=== PATIENT | female | born 1965 | race Asian ===

== ENCOUNTER 2022-01-11 15:53 | Emergency (ER) | payer OTHER ==
[2022-01-11 17:46] LABS: Basophils % (Auto) 0.6 % (0.0-1.8); Eosinophils # (Auto) 0.1 K/mm3 (0.0-0.4); Eosinophils % (Auto) 1.2 % (0.0-4.3); Hematocrit 38.3 % (30.3-42.9); Hemoglobin 13.2 gm/dl (10.1-14.3); Lymphocytes # (Auto) 1.9 K/mm3 (1.2-5.4); Lymphocytes % (Auto) 32.1 % (13.4-35.0); Mean Corpuscular HGB Conc 35 % (30-34); Mean Corpuscular Volume 91 fl (79-97); Monocytes # (Auto) 0.4 K/mm3 (0.0-0.8); Monocytes % (Auto) 7.4 % (0.0-7.3); Platelet Count 235 K/mm3 (140-440); Red Blood Count 4.19 M/mm3 (3.65-5.03); Red Cell Distribution Width 13.6 % (13.2-15.2)
[2022-01-11 17:54] LABS: Bacteria,Urine 2+ /HPF (Negative); Bilirubin,Urine NEG (Negative); Blood,Urine SM (Negative); Color,Urine Yellow (Yellow); Mucus,Urine 2+ /HPF; Protein,Urine <15 mg/dL mg/dL (Negative); Urobilinogen,Urine < 2.0 mg/dL (<2.0)
[2022-01-11 18:09] LABS: Alanine Aminotransferase 11 units/L (7-56); Albumin 4.6 g/dL (3.9-5); BUN/Creatinine Ratio 15; Blood Urea Nitrogen 12 mg/dL (7-17); Calcium 9.7 mg/dL (8.4-10.2); Hemolysis Index 16
[2022-01-11] MEDS ORDERED: SULFAMETHOXAZOLE/TRIMETHOPRIM 800/160MG DS TAB PO ONE (21:00)
[2022-01-11] MEDS ORDERED: KETOROLAC 30 MG/1 ML INJ IM ONE (21:00)
[2022-01-11] MEDS ORDERED: ONDANSETRON 4 MG ODT TAB PO ONE (21:00)
--- NOTE | 2022-01-11 22:09 | Cat Scan Report ---
CT ABDOMEN AND PELVIS WITHOUT CONTRAST INDICATION / CLINICAL INFORMATION: Left flank pain. TECHNIQUE: Axial CT images were obtained through the abdomen and pelvis without IV contrast. All CT scans at this location are performed using CT dose reduction for ALARA by means of automated exposure control. COMPARISON: None available. FINDINGS: LOWER CHEST: No significant abnormality. AORTA / ARTERIES: No significant abnormality. IVC / VEINS: No significant abnormality. LYMPH NODES: No significant adenopathy. COLON: No significant abnormality. APPENDIX: Not visualized. STOMACH / SMALL BOWEL: No significant abnormality. Post surgical changes to bowel within the pelvis. PERITONEUM: No free fluid. No free air. No fluid collection. LIVER: No significant abnormality. GALLBLADDER: No significant abnormality. BILE DUCTS: No significant abnormality. PANCREAS: No significant abnormality. SPLEEN: No significant abnormality. ADRENALS: No significant abnormality. RIGHT KIDNEY / URETER: No significant abnormality. LEFT KIDNEY / URETER: No significant abnormality. URINARY BLADDER: No significant abnormality. REPRODUCTIVE ORGANS: Uterus is absent. No significant adnexal abnormality. SKELETAL SYSTEM: No significant abnormality. ADDITIONAL FINDINGS: None. IMPRESSION: 1. No CT findings to explain symptomatology, specifically no nephrolithiasis or hydronephrosis. Signer Name: Blu Smith DO Signed: 01/11/2022 10:04 PM Workstation Name: [id number]
--- NOTE | 2022-01-11 22:45 | Emergency Department Report ---
ED Abdominal Pain HPI - General Chief Complaint: Abdominal Pain Stated Complaint: BACK PAIN--UNABLE TO URINATE Source: patient Mode of arrival: Ambulatory Limitations: No Limitations - History of Present Illness Initial Comments: Patient is a 56-year-old -[place] female with no past medical history except frequent urinary tract infections who presents to the ED with complaint of acute onset persistent left flank pain that radiates to the left lower back and left lower quadrant area for with nausea for the last 3 days, worse in the last 24 hours. Patient states that all the symptoms have been persistent and intermittent for the last 1 week however she was initially evaluated and treated at an urgent care clinic and was diagnosed with acute urinary tract infection, and given Rocephin 1 g intramuscular injection and discharged home. Patient states that the only medication that was prescribed to go and take at home last Diflucan. Patient states that the last 3 days the pain is worsened with nausea. Patient denies urinary frequency and urgency, vaginal bleeding, dysuria, vaginal discharge, chest pain or shortness of breath, fever, chills, nausea and vomiting. MD Complaint: abdominal pain (LLQ pain), flank pain (left flank), other (lower back) -: Sudden, days(s) (3) Location: LLQ, L flank Radiation: LLQ, L flank, back (lower) Migration to: LLQ, L flank Severity: severe Severity scale (0 -10): 8 Quality: aching, sharp Consistency: constant Improves With: nothing Worsens With: movement Associated Symptoms: denies other symptoms, nausea. denies: vomiting, diarrhea, fever, chills, constipation, dysuria, hematemesis, hematochezia, melena, hematuria, anorexia, syncope, other - Related Data Previous Rx's Medication Instructions Recorded Last Taken Type Ibuprofen [Motrin] 800 mg PO Q8HR PRN #30 tablet 01/11/22 Unknown Rx Sulfamethoxazole/Trimethoprim 1 each PO Q12H #20 tab 01/11/22 Unknown Rx [Bactrim DS TAB] methOCARBAMOL [Robaxin TAB] 750 mg PO BID PRN #24 tab 01/11/22 Unknown Rx Allergies Allergy/AdvReac Type Severity Reaction Status Date / Time codeine Allergy Itching Verified 01/11/22 16:56 Penicillins Allergy Hives Verified 01/11/22 16:56 ED Review of Systems ROS: Stated complaint: BACK PAIN--UNABLE TO URINATE Other details as noted in HPI Constitutional: denies: chills, fever Eyes: denies: eye pain, eye discharge, vision change ENT: denies: ear pain, throat pain Respiratory: denies: cough, shortness of breath, wheezing Cardiovascular: denies: chest pain, palpitations Endocrine: no symptoms reported Gastrointestinal: abdominal pain (left flank, LLQ pain), nausea. denies: vomiting, diarrhea, constipation, hematemesis, melena, hematochezia Genitourinary: denies: urgency, dysuria, discharge Musculoskeletal: back pain (lower back pain). denies: joint swelling, a rthralgia Skin: denies: rash, lesions Neurological: denies: headache, weakness, paresthesias Psychiatric: denies: anxiety, depression Hematological/Lymphatic: denies: easy bleeding, easy bruising ED Past Medical Hx - Past Medical History Previous Medical History?: Yes Additional medical history: Frequent UTI - Surgical History Past Surgical History?: Yes Hx Appendectomy: Yes Additional Surgical History: Hysterectomy, Bowel resection, - Medications Home Medications: Home Medications Medication Instructions Recorded Confirmed Last Taken Type Ibuprofen [Motrin] 800 mg PO Q8HR PRN #30 tablet 01/11/22 Unknown Rx Sulfamethoxazole/Trimethoprim 1 each PO Q12H #20 tab 01/11/22 Unknown Rx [Bactrim DS TAB] methOCARBAMOL [Robaxin TAB] 750 mg PO BID PRN #24 tab 01/11/22 Unknown Rx ED Physical Exam - General Limitations: No Limitations General appearance: alert, in no apparent distress - Head Head exam: Present: atraumatic, normocephalic, normal inspection - Eye Eye exam: Present: normal appearance, PERRL, EOMI Pupils: Present: normal accommodation - ENT ENT exam: Present: normal exam, normal orophraynx, mucous membranes moist, TM's normal bilaterally, normal external ear exam - Neck Neck exam: Present: normal inspection, full ROM. Absent: tenderness - Respiratory Respiratory exam: Present: normal lung sounds bilaterally. Absent: respiratory distress, wheezes, rales, rhonchi, chest wall tenderness, accessory muscle use, decreased breath sounds, prolonged expiratory - Cardiovascular Cardiovascular Exam: Present: regular rate, normal rhythm, normal heart sounds. Absent: systolic murmur, diastolic murmur, rubs, gallop - GI/Abdominal GI/Abdominal exam: Present: soft, tenderness (Plapable left flank tenderness), normal bowel sounds. Absent: guarding, rebound, rigid, hyperactive bowel sounds, hypoactive bowel sounds, organomegaly, mass - Extremities Exam Extremities exam: Present: normal inspection, full ROM, normal capillary refill. Absent: tenderness - Back Exam Back exam: Present: normal inspection, full ROM, tenderness (Palpable lumbosacral paraspinal musculoskeletal tenderness), muscle spasm, paraspinal tenderness. Absent: CVA tenderness (L), vertebral tenderness - Neurological Exam Neurological exam: Present: alert, oriented X3, CN II-XII intact, normal gait, reflexes normal - Psychiatric Psychiatric exam: Present: normal affect, normal mood - Skin Skin exam: Present: warm, dry, intact, normal color. Absent: rash ED Course Vital Signs 01/11/22 16:56 Temperature 98.3 F Pulse Rate 86 Respiratory 20 Rate Blood Pressure 151/83 [Right] O2 Sat by Pulse 99 Oximetry ED Medical Decision Making - Lab Data Result diagrams: 01/11/22 17:22 01/11/22 17:22 - Radiology Data Radiology results: report reviewed, image reviewed [facility] [address] [place] [address] Cat Scan Report Signed Patient: KATHERINE SCHUSTER MR#: [id number] : 1965 Acct:[id number] Age/Sex: 56 / F ADM Date: 01/11/22 Loc: ED Attending Dr: Ordering Physician: CARMELINA TREJO Date of Service: 01/11/22 Procedure(s): CT abdomen pelvis wo con Accession Number(s): [id number] cc: CARMELINA TREJO CT ABDOMEN AND PELVIS WITHOUT CONTRAST INDICATION / CLINICAL INFORMATION: Left flank pain. TECHNIQUE: Axial CT images were obtained through the abdomen and pelvis without IV contrast. All CT scans at this location are performed using CT dose reduction for ALARA by means of automated exposure control. COMPARISON: None available. FINDINGS: LOWER CHEST: No significant abnormality. AORTA / ARTERIES: No significant abnormality. IVC / VEINS: No significant abnormality. LYMPH NODES: No significant adenopathy. COLON: No significant abnormality. APPENDIX: Not visualized. STOMACH / SMALL BOWEL: No significant abnormality. Post surgical changes to bowel within the pelvis. PERITONEUM: No free fluid. No free air. No fluid collection. LIVER: No significant abnormality. GALLBLADDER: No significant abnormality. BILE DUCTS: No significant abnormality. PANCREAS: No significant abnormality. SPLEEN: No significant abnormality. ADRENALS: No significant abnormality. RIGHT KIDNEY / URETER: No significant abnormality. LEFT KIDNEY / URETER: No significant abnormality. URINARY BLADDER: No significant abnormality. REPRODUCTIVE ORGANS: Uterus is absent. No significant adnexal abnormality. SKELETAL SYSTEM: No significant abnormality. ADDITIONAL FINDINGS: None. IMPRESSION: 1. No CT findings to explain symptomatology, specifically no nephrolithiasis or hydronephrosis. Signer Name: Blu Elliott DO Signed: 01/11/2022 10:04 PM Workstation Name: [id number] Transcribed By: LARY Dictated By: BLU ELLIOTT DO Electronically Authenticated By: BLU ELLIOTT DO Signed Date/Time: 01/11/222203 DD/ 99 TD/TT: Print Cancel - Medical Decision Making This is a 56-year-old -[place] female with no past medical history except frequent urinary tract infections who presents to the ED with complaint of acute onset persistent left flank pain that radiates to the left lower back and left lower quadrant area for with nausea for the last 3 days, worse in the last 24 hours. Patient states that all the symptoms have been persistent and intermittent for the last 1 week however she was initially evaluated and treated at an urgent care clinic and was diagnosed with acute urinary tract infection, and given Rocephin 1 g intramuscular injection and discharged home. Patient states that the only medication that was prescribed to go and take at home last Diflucan. Patient states that the last 3 days the pain is worsened with nausea. In the ED, patient is alert and oriented x3 and is not in any distress. Lab test results were reviewed and are all nonactionable except for urinalysis that showed urinary tract infection. Patient was treated for pain and was given initial oral antibiotics in the ED. Abdomen pelvis CT scan without contrast showed no acute abnormalities, no kidney stones or hydronephrosis. Patient was therefore discharged home on medications and advised to follow-up with her primary care physician in 7 to 10 days for reevaluation or return to the ED immediately if symptoms get worse. - Differential Diagnosis UTI; kidney stone; diverticulitis; pyelonephritis; muscle spasm Critical care attestation.: If time is entered above; I have spent that time in minutes in the direct care of this critically ill patient, excluding procedure time. ED Disposition Clinical Impression: Acute left flank pain, Acute urinary tract infection, Spasm of muscle of lower back Disposition: HOME / SELF CARE / HOMELESS Is pt being admited?: No Does the pt Need Aspirin: No Condition: Stable Instructions: Abdominal Pain (ED), Flank Pain, Adult, [id number], Muscle Cramps and Spasms, [id number], Abdominal Pain, Adult, [id number], Urinary Tract Infection, Adult, [id number] Additional Instructions: All lab test results were reviewed and are all nonactionable except for urinalysis that showed urinary tract infection. Abdomen pelvis CT scan without contrast showed no acute abnormalities. Therefore take medications with food, drink plenty of fluids, follow-up with your primary care physician in 7 to 10 days for reevaluation. Return to the ED immediately if symptoms get worse Prescriptions: Sulfamethoxazole/Trimethoprim [Bactrim DS TAB] 1 each PO Q12H #20 tab Ibuprofen [Motrin] 800 mg PO Q8HR PRN #30 tablet PRN Reason: Pain , Severe (7-10) methOCARBAMOL [Robaxin TAB] 750 mg PO BID PRN #24 tab PRN Reason: Muscle Spasm Referrals: VINICIO WINTER MD [Other] - 3-5 Days Forms: Work/School Release Form(ED) Time of Disposition: 22:52 Print Language: RWANDAN
[2022-01-12 05:20] VITALS: BP 135/76
== END 2022-01-11 23:37 | disposition home or self-care (01) ==
LOC: ED 15:53
DX: N39.0 Urinary tract infection, site not specified (principal); R10.32 Left lower quadrant pain; M62.830 Muscle spasm of back; Z90.89 Acquired absence of other organs; Z90.710 Acquired absence of both cervix and uterus; Z98.890 Other specified postprocedural states; Z88.0 Allergy status to penicillin; Z88.5 Allergy status to narcotic agent
CPT/HCPCS: 36415; 74176; 80053; 81001; 83690; 85025; 87086; 96372; 99284; J1885; J3490; Q0162